=== PATIENT | female | born 1985 | race Asian ===

== ENCOUNTER 2016-05-13 04:38 | Emergency (ER) | payer SELFPAY ==
[2016-05-13] MEDS ORDERED: METHYLPREDNISOLONE INJ 125 MG/2 ML SDV IV ONE (05:45)
[2016-05-13] MEDS ORDERED: DIPHENHYDRAMINE HCL 50 MG/ML VIAL IV ONE (05:45)
[2016-05-13] MEDS ORDERED: FAMOTIDINE INJ/PF 20 MG/2 ML SDV IV ONE (05:45)
--- NOTE | 2016-05-13 05:46 | ER Document Report ---
Doctor's Note Notes: 05/13/16 05:46 Performed a quick triage evaluation the patient. Patient reports some lip swelling also lives tightness in her throat. Started this morning. No new foods. No new detergents. No new medications. She's never headache like this before. Only known food allergy is to shellfish. She's allergic to ibuprofen. No wheezing. No stridor. On exam the patient looks well comfortable. Chest slight swelling of her lip. No posterior pharyngeal swelling. She does complain of some itching. Lung colin are clear. I will start the patient on Benadryl Pepcid and Solu-Medrol.
[2016-05-13] MEDS ORDERED: PREDNISONE 20 MG TABLET PO ONE (09:02)
--- NOTE | 2016-05-13 09:07 | ER Document Report ---
ED General - General Chief Complaint: Allergic Reaction Stated Complaint: POSSIBLE ALLERGIC REACTION TRAVEL OUTSIDE OF THE [place] IN LAST 30 DAYS: No - HPI Patient complains to provider of: lip swelling allergic reaction Notes: Patient coming in and presented today for possible allergic reaction. Patient states she has had similar before due to exposure to sea food. Patient states that her lips started swelling this morning around 3:00. Patient states she did not take any seafood. Patient denies fevers chills nausea vomiting difficulty breathing difficulty swallowing at this time. Patient is hemodynamically stable and alert upon my evaluation - Related Data Allergies/Adverse Reactions: ibuprofen Allergy (Verified 05/13/16 05:17) Past Medical History - Social History Smoking Status: Never Smoker Chew tobacco use (# tins/day): No Frequency of alcohol use: None Drug Abuse: None Family History: Reviewed & Not Pertinent Patient has suicidal ideation: No Patient has homicidal ideation: No Renal/ Medical History: Denies: Hx Peritoneal Dialysis Surgical Hx: Negative - Immunizations Hx Diphtheria, Pertussis, Tetanus Vaccination: Yes Review of Systems - Review of Systems Constitutional: No symptoms reported EENT: Other - Lip swelling Cardiovascular: No symptoms reported Respiratory: No symptoms reported Gastrointestinal: No symptoms reported Genitourinary: No symptoms reported Female Genitourinary: No symptoms reported Musculoskeletal: No symptoms reported Skin: No symptoms reported Hematologic/Lymphatic: No symptoms reported Neurological/Psychological: No symptoms reported Physical Exam - Vital signs Vitals: Temp Pulse Resp BP Pulse Ox 98.5 F 108 H 18 129/82 H 100 05/13/16 05:11 05/13/16 05:11 05/13/16 05:11 05/13/16 05:11 05/13/16 05:11 Interpretation: Normal - General General appearance: Appears well, Alert - HEENT Head: Normocephalic, Atraumatic Eyes: Normal Cornea: Normal Extraocular movements intact: Yes Eyelashes: Normal Pupils: PERRL Ears: Normal External canal: Normal Nasal: Normal Mouth/Lips: Other - Swelling of the upper lip Pharynx: Normal Neck: Normal - Respiratory Respiratory status: No respiratory distress Chest status: Nontender Breath sounds: Normal Chest palpation: Normal - Cardiovascular Rhythm: Regular Heart sounds: Normal auscultation Murmur: No - Abdominal Inspection: Normal Distension: No distension Bowel sounds: Normal Tenderness: Nontender Organomegaly: No organomegaly - Back Back: Normal, Nontender - Extremities General upper extremity: Normal inspection, Nontender, Normal color, Normal ROM , Normal temperature General lower extremity: Normal inspection, Nontender, Normal color, Normal ROM , Normal temperature, Normal weight bearing. No: Rosenda's sign - Neurological Neuro grossly intact: Yes Cognition: Normal Orientation: AAOx4 [place] Coma Scale Eye Opening: Spontaneous [place] Coma Scale Verbal: Oriented [place] Coma Scale Motor: Obeys Commands [place] Coma Scale Total: 15 Speech: Normal Motor strength normal: LUE, RUE, LLE, RLE Sensory: Normal - Psychological Associated symptoms: Normal affect, Normal mood - Skin Skin Temperature: Warm Skin Moisture: Dry Skin Color: Normal Course - Re-evaluation Re-evalutation: 05/13/16 14:43 Patient's coming in for evaluation of upper lip swelling possible allergic reaction. Patient had no hives patient was given Benadryl Pepcid and Solu- Medrol with resolution of her symptoms after observation in the ER greater than 4 hours after the onset of symptoms. Patient was discharged home with steroids. 05/13/16 14:46 Patient at time of discharge request a prescription for hydrocortisone cream - Vital Signs Vital signs: Temp Pulse Resp BP Pulse Ox 97.9 F 104 H 16 109/65 100 05/13/16 09:30 05/13/16 09:30 05/13/16 09:30 05/13/16 09:30 05/13/16 09:30 Discharge - Discharge Clinical Impression: Allergic reaction Qualifiers: Encounter type: initial encounter Qualified Code(s): T78.40XA - Allergy, unspecified, initial encounter Condition: Good Disposition: HOME, SELF-CARE Instructions: Acute Allergic Reaction ([facility]), Use of Diphenhydramine Additional Instructions: Please take medications as prescribed. Return if symptoms become worse. Prescriptions: Epinephrine [Epipen 2-Jus] 0.3 mg IM ONCE PRN #2 ml PRN Reason: Hydrocortisone [Hydrocortisone 0.5% Cream 28.35 Gm] 1 applic TP BID #1 tube Prednisone 40 mg PO DAILY 4 Days Forms: Return to Work
[2016-05-13 09:32] VITALS: BP 109/65
== END 2016-05-13 09:32 | disposition home or self-care (01) ==
LOC: ER 04:38
DX: T78.40XA Allergy, unspecified, initial encounter (principal)
CPT/HCPCS: 99283; 96374; 96375; J1200; J2930; J7512; S0028